=== PATIENT | female | born 1955 | race African-American/Black ===

== ENCOUNTER 2023-04-09 09:48 | Outpatient (CLI) | payer MEDICARE, OTHER ==
[2023-04-09 11:41] LABS: Hematocrit 42.9 % (34.9-44.5); Hemoglobin 14.5 g/dL (12.0-15.5); Mean Corpuscular HGB CONC 33.8 g/dL (32.0-36.0); Mean Corpuscular Hemoglobin 29.2 pg (27.0-33.0); Mean Corpuscular Volume 86.3 fl (81.6-98.3); Mean Platelet Volume 9.7 fl (7.4-10.4); Platelet Count 356 10x3/uL (150-450); RBC Distribution Width 13.2 % (11.5-14.5); Red Blood Cell (RBC) Count 4.97 10x6/uL (3.90-5.03); White Blood Cell (WBC) Count 4.7 10x3/uL (3.5-10.5)
[2023-04-09 12:15] LABS: Anion Gap 15 mmol/L (10-20); BUN (Urea Nitrogen) 9 mg/dL (9.8-20.1); Calc. Creatinine Clearance 0 mL/min (70-130); Calcium 9.9 mg/dL (7.8-10.44); Carbon Dioxide 28 mmol/L (23-31); Chloride 101 mmol/L (98-107); Estimated GFR 81; Glucose 98 mg/dL (80-115); Potassium 3.9 mmol/L (3.5-5.1); Sodium 140 mmol/L (136-145)
== END 2023-04-09 09:49 | disposition home or self-care (01) ==
LOC: LABBT 09:48
PROVIDERS: ATTEND Specialist
DX: Z01.818 Encounter for other preprocedural examination (principal); C50.912 Malignant neoplasm of unspecified site of left female breast
CPT/HCPCS: 71046; 80048; 85027; 93005; 93010

== ENCOUNTER 2023-04-13 07:16 | Day surgery (SDC) | payer MEDICARE, OTHER ==
[2023-04-09 10:33] VITALS: BMI 33.3
[2023-04-13] MEDS ORDERED: Ketorolac Tromethamine 30 MG/ML VIAL ONE (09:59)
[2023-04-13] MEDS ORDERED: Acetaminophen 500 MG TAB ONE (10:00)
[2023-04-13] MEDS ORDERED: Lidocaine 1% MPF 2 ML VIAL ONE (10:32)
[2023-04-13] MEDS ORDERED: Isosulfan Blue 50 MG/5 ML VIAL ONE (17:01)
[2023-04-13] MEDS ORDERED: EPINEPHrine 1 MG/ML VIAL ONE (17:01)
[2023-04-13] MEDS ORDERED: fentaNYL PF 100 MCG/2 ML SYRINGE ONE (17:02)
[2023-04-13] MEDS ORDERED: Lidocaine 2% PF 5 ML VIAL ONE (17:02)
[2023-04-13] MEDS ORDERED: Ondansetron PF 4 MG/2 ML Vial ONE ×2 (17:02→17:38)
[2023-04-13] MEDS ORDERED: Dexamethasone 4 mg/ml Vial ONE (17:02)
[2023-04-13] MEDS ORDERED: Bupivacaine 0.25% HCL 30 ML VIAL ONE (17:02)
[2023-04-13] MEDS ORDERED: PROPOFOL 20 ML ONE (17:02)
[2023-04-13] MEDS ORDERED: Lidocaine 1% PF 5 ML VIAL ONE ×2 (17:02→17:38)
[2023-04-13] MEDS ORDERED: CEFAZOLIN 2 GM VIAL ONE (17:23)
[2023-04-13] MEDS ORDERED: Sodium Chloride 0.9% 100 ML ONE (17:23)
[2023-04-13] MEDS ORDERED: Dexamethasone 20 MG/5 ML VIAL ONE (17:38)
[2023-04-13] MEDS ORDERED: PROPOFOL 200 MG/20 ML VIAL ONE (17:38)
[2023-04-13] MEDS ORDERED: Labetalol HCl 100 MG/20 ML VIAL ONE (19:33)
[2023-04-13] MEDS ORDERED: hydrALAZINE 20 MG/ML VIAL ONE (20:33)
== END 2023-04-13 21:15 | disposition home or self-care (01) ==
LOC: SDC 07:16
PROVIDERS: ATTEND Specialist
PROC: 0HBU0ZZ Excision of Left Breast, Open Approach (ICD-10-PCS; principal; 2023-04-13)
PROC: 07B60ZX Excision of Left Axillary Lymphatic, Open Approach, Diagnostic (ICD-10-PCS; 2023-04-13)
DX: C50.912 Malignant neoplasm of unspecified site of left female breast (principal); I10 Essential (primary) hypertension; E78.00 Pure hypercholesterolemia, unspecified; M19.90 Unspecified osteoarthritis, unspecified site; Z90.710 Acquired absence of both cervix and uterus; Z79.899 Other long term (current) drug therapy
CPT/HCPCS: 19301; 38525; 38900; 76098; 78195; A9541; J0171; J0360; Q9968; 88307; 88342; J1100; J1885; J2001; J2405; J2704; J3490; S0020

== ENCOUNTER 2024-02-22 13:04 | Outpatient (CLI) | payer MEDICARE | END 2024-02-22 13:05 | disposition home or self-care (01) | LOC: BICMAMMO 13:04 | PROVIDERS: ATTEND Specialist | DX: Z08 Encounter for follow-up examination after completed treatment for malignant neoplasm (principal); Z85.3 Personal history of malignant neoplasm of breast | CPT/HCPCS: 77066; G0279 ==